=== PATIENT | female | born 1995 | race Caucasian/White ===

== ENCOUNTER 2020-10-22 19:39 | Emergency (ER) | payer OTHER ==
[~2020-10-22] VITALS: Ht 165.1 cm; Wt 60.0 kg
[2020-10-22] MEDS ORDERED: FAMOTIDINE 20MG TABLET PO ONE (20:30)
[2020-10-22] MEDS ORDERED: ONDANSETRON 4MG ODT PO ONE (20:30)
[2020-10-22 20:50] LABS: BASOPHILS % 0.5 % (0.0-2.0); EOSINOPHILS % 4.7 % (0.0-5.0); HEMATOCRIT. 37.7 % (36.0-48.0); HEMOGLOBIN. 12.9 g/dL (12.0-16.0); LYMPHOCYTES % 22.9 % (20.0-50.0); MEAN CORPUSCULAR HEMOGLOBIN 28.8 pg (28.0-32.0); MEAN CORPUSCULAR VOLUME 84.3 fL (81.0-99.0); MEAN PLATELET VOLUME 7.2 fl (7.4-10.4); MONOCYTES % 5.4 % (2.0-8.0); NEUTROPHILS % 66.5 % (40.0-76.0); PLATELET 336 x1000/uL (130-400); RED BLOOD CELL COUNT 4.47 mill/uL (4.2-5.4); RED CELL DISTRIBUTION WIDTH 13.3 % (11.6-14.6)
[2020-10-22 20:54] LABS: CHLORIDE 106 mEq/L (98-107)
[2020-10-22 20:57] LABS: ETHANOL BLOOD < 10 mg/dL
[2020-10-22 21:20] LABS: *AMPHETAMINES SCREEN URINE NEGATIVE (NEGATIVE); *BARBITURATES SCREEN URINE NEGATIVE (NEGATIVE)
[2020-10-22 21:21] LABS: *BENZODIAZEPINES SCREEN URINE NEGATIVE (NEGATIVE); *COCAINE SCREEN URINE NEGATIVE (NEGATIVE); CANNABINOID URINE SCREEN NEGATIVE (NEGATIVE); METHADONE URINE SCREEN NEGATIVE (NEGATIVE); OPIATES URINE SCREEN NEGATIVE (NEGATIVE); PHENCYCLIDINE URINE SCREEN NEGATIVE (NEGATIVE)
[2020-10-23 03:30] VITALS: BP 128/71
== END 2020-10-23 03:40 | disposition home or self-care (01) ==
LOC: ER 21:02
DX: F32.9 Major depressive disorder, single episode, unspecified (principal); R45.851 Suicidal ideations; I49.8 Other specified cardiac arrhythmias
CPT/HCPCS: 36415; 80048; 80305; 80307; 80320; 80329; 81025; 85025; 93005; 99285; Q0162; G0480